=== PATIENT | male | born 1980 | race Caucasian/White ===

== ENCOUNTER 2018-04-08 13:35 | Emergency (ER) | payer MEDICAID ==
[~2018-04-08] VITALS: Ht 190.5 cm; Wt 106.6 kg
[2018-04-08] MEDS ORDERED: WELLBUTRIN XL150 MG PO (15:05)
[2018-04-08] MEDS ORDERED: SYNTHROID100 MCG PO (15:05)
[2018-04-08] MEDS ORDERED: TRAZODONE HCL50 MG PO (15:05)
== END 2018-04-08 15:28 | disposition home or self-care (01) ==
LOC: ED 13:35
DX: F32.9 Major depressive disorder, single episode, unspecified (principal); E03.9 Hypothyroidism, unspecified; F41.9 Anxiety disorder, unspecified; F17.200 Nicotine dependence, unspecified, uncomplicated; Z88.8 Allergy status to other drugs, medicaments and biological substances
CPT/HCPCS: 99283

== ENCOUNTER 2019-02-25 07:38 | Emergency (ER) | payer OTHER ==
[~2019-02-25] VITALS: Ht 190.5 cm; Wt 102.1 kg
[~2019-02-25 07:38] MED LIST: SYNTHROID100 MCG PO; TRAZODONE HCL50 MG PO; WELLBUTRIN XL150 MG PO; ZOFRAN4 MG PO
--- OUTSIDE RECORDS SUMMARY | 2019-02-25 07:42 | XMS ---
PreManage Notification: [employer] Events No recent Security Events currently on file CRITERIA MET - Group Notification - [facility] CARE PROVIDERS [facility] 06/07/2018-[facility] PRIMARY CARE PHONE: [phone] [facility]/Center: Federally Qualified 09/10/2017-[facility] ([facility]) PHONE: [phone] [facility] Care 06/07/2018-[facility] PRIMARY CARE [facility] PHONE: [phone] [facility] 09/11/2017-[facility] GABRIELAVERLUZ PHONE: [phone] [facility] Primary Care 09/03/2017-[facility] - DENTAL CLINIC PHONE: [phone] [facility] Primary Care 06/15/2014-[facility] AND FAMILY PRACTICE [place]OR[place] PHONE: Unknown TOMASZ SHELDON Primary Care [facility] PHONE: Unknown Peg has no Care Guidelines for this patient. Care History Medical/Surgical 05/20/2018 [facility] - W RECEIVED 2ND ED CONSULT FOR PATIENT- - PATIENT DOES NOT ANSWER HIS PHONE AND CHW HAS LEFT PATIENT SEVERAL VOICEMAILS. - PATIENT HAS [place] INSURANCE HE DOES NOT [place] AND OR OPEN MEDICAID CARD, - W WILL SEND A LETTER TO ADDRESS LISTED FOR PATIENT. - PLEASE REFER PATIENT TO THE WALK IN CLINIC TO ESTABLISH CARE WITH A PROVIDER 04/09/2018 [facility] - CHW RECEIVED ED CONSULT FOR PATIENT- HELP PATIENT ESTABLISH WITH PCP. - PATIENT DOES NOT HAVE A CONTACT NUMBER LISTED. - CHW WILL HAVE TO SEND A LETTER TO PATIENT FOR CONTACT. - IF PATIENT IS SEEN IN THE ED PLEASE ASK FOR CONTACT NUMBER FROM PATIENT. - PATIENT WILL NEED TO SEE CARLOS TO SEE ABOUT TRANSFERRING PATIENT MEDICAID TO [facility] - EXT [phone] - PLEASE PROVIDE CHW CONTACT NUMBER TO PATIENT [phone]. E.D. VISIT COUNT (12 MO.) 4 [facility] TOTAL 4 NOTE: Visits indicate total known visits. ED/UCC VISIT TRACKING (12 MO.) 02/25/2019 07:40 [facility] TYPE: Emergency COMPLAINT: - RIGHT WRIST INJ 12/13/2018 19:24 [facility] TYPE: Emergency COMPLAINT: - MULTIPLE COMPLAINT DIAGNOSES: - Nicotine dependence, unspecified, uncomplicated - Allergy status to other drugs, medicaments and biological substances status - Other custodial (current) drug therapy - Major depressive disorder, single episode, unspecified - Allergy status to other antibiotic agents status - Anxiety disorder, unspecified - Encounter for other general examination - Hypothyroidism, unspecified 05/18/2018 10:08 [facility] TYPE: Emergency COMPLAINT: - MIGRAINE DIAGNOSES: - Major depressive disorder, single episode, unspecified - Migraine, unspecified, not intractable, without status migrainosus - Hypothyroidism, unspecified - Anxiety disorder, unspecified - Nicotine dependence, unspecified, uncomplicated - Headache - Other custodial (current) drug therapy - Allergy status to other drugs, medicaments and biological substances status 04/08/2018 13:37 [facility] TYPE: Emergency COMPLAINT: - DEPRESSION DIAGNOSES: - Nicotine dependence, unspecified, uncomplicated - Allergy status to other drugs, medicaments and biological substances status - Anxiety disorder, unspecified - Hypothyroidism, unspecified - Major depressive disorder, single episode, unspecified INPATIENT VISIT TRACKING (12 MO.) No inpatient visits to display in this time frame [email or web address]
== END 2019-02-25 08:23 | disposition home or self-care (01) ==
LOC: ED 07:38
DX: S56.511A Strain of other extensor muscle, fascia and tendon at forearm level, right arm, initial encounter (principal); S63.501A Unspecified sprain of right wrist, initial encounter; E03.9 Hypothyroidism, unspecified; F17.200 Nicotine dependence, unspecified, uncomplicated; Z88.5 Allergy status to narcotic agent; Z88.1 Allergy status to other antibiotic agents; Z79.899 Other long term (current) drug therapy; X50.1XXA Overexertion from prolonged static or awkward postures, initial encounter
CPT/HCPCS: 99283